=== PATIENT | female | born 1945 | race Caucasian/White ===

== ENCOUNTER → 2017-10-06 | Outpatient (CLI) | payer OTHER ==
[~2017-10-06] MED LIST: ARIP30 PO; ASPI81CH PO; Budeprion Xl300 MG PO; CALCAVITD PO; CETI5 PO; CLON1 PO; COMBIVENT RESPIM4 GM INH; Chondroitin Su250 MG PO; ENOX40I SC; ESCI10 PO; GLUC500 PO; LEVSOD50 PO; LOPE2C PO; Naproxen375 MG PO; OXYACE5T PO; QVAR7.3 G1 IH; TYLENOL PO; UREATC TOP
[2017-10-06 17:40] LABS: BASOPHILS ABSOLUTE AUTO 0.06 K/mm3 (0.00-0.23); BASOPHILS PERCENT AUTO 1 % (0-2); EOSINOPHILS ABSOLUTE AUTO 0.35 K/mm3 (0.00-0.68); EOSINOPHILS PERCENT AUTO 5 % (0-6); Hematocrit 36.7 % (33.0-51.0); Hemoglobin 12.1 g/dL (11.5-16.0); IMMATURE GRAN ABSOLUTE AUTO 0.02 K/mm3 (0.00-0.10); IMMATURE GRAN PERCENT AUTO 0 % (0-1); LYMPHOCYTES ABSOLUTE AUTO 1.19 K/mm3 (0.84-5.20); LYMPHOCYTES PERCENT AUTO 16 % (21-46); MONOCYTES ABSOLUTE AUTO 0.79 K/mm3 (0.16-1.47); MONOCYTES PERCENT AUTO 11 % (4-13); Mean Corpuscular HGB 29.4 pg (26.0-34.0); Mean Corpuscular Volume 89 fL (80-100); NEUTROPHILS ABSOLUTE AUTO 5.06 K/mm3 (1.96-9.15); NEUTROPHILS PERCENT AUTO 68 % (41-73); Platelet Count 284 K/mm3 (150-400); RDW Coefficient Variation 12.6 % (11.7-14.2); RDW Standard Deviation 41.3 fL (35.1-46.3); Red Blood Cell Count 4.11 M/mm3 (3.80-5.20); White Blood Cell Count 7.47 K/mm3 (4.00-11.30)
[2017-10-06 17:49] LABS: Alanine Aminotransfer (ALT/SGP 19 U/L (12-78); Albumin, Blood 3.6 g/dL (3.4-5.0); Albumin/Globulin Ratio 0.8 (0.8-1.8); Alk Phos 107 U/L (50-136); Anion Gap 10 mmol/L (6-16); Aspartate Aminotrans (AST/SGOT 21 U/L (12-37); Bilirubin, Total 0.5 mg/dL (0.1-1.0); Blood Urea Nitrogen 16 mg/dL (8-24); Bun/Creatinine Ratio 15.4 (12.0-20.0); CHOL/HDL RATIO 2.3; CO2, Blood 25 mmol/L (21-32); Calcium, Blood 9.3 mg/dL (8.5-10.1); Chloride, Blood 107 mmol/L (98-108); Cholesterol 139 mg/dL (50-200); Creatinine, Blood 1.04 mg/dL (0.40-1.00); Free Thyroxine 1.27 ng/dL (0.70-1.60); Globulin, Blood 4.5 g/dL (2.2-4.0); Glomerular Filtration Rate 56 (60-); Glucose, Blood 95 mg/dL (70-99); HDL Cholesterol 60 mg/dL (>39); LDL/HDL RATIO 1.1; Low Density Lipoprotein Chol 66 mg/dL (0-110); Potassium, Blood 4.1 mmol/L (3.5-5.5); Sodium, Blood 142 mmol/L (136-145); Total Protein, Blood 8.1 g/dL (6.4-8.2); Triglycerides 66 mg/dL (30-160); Very Low Density Lipoprot Chol 13 mg/dL (6-32)
== END ==
LOC: LAB SHORT 14:09
PROVIDERS: Hospitalist
DX: E03.9 Hypothyroidism, unspecified (principal); F25.9 Schizoaffective disorder, unspecified; J44.9 Chronic obstructive pulmonary disease, unspecified
CPT/HCPCS: 80053; 80061; 84439; 84443; 85025

== ENCOUNTER 2017-10-16 10:40 | Inpatient (IN) | payer OTHER ==
[~2017-10-16] VITALS: Ht 167.6 cm; Wt 118.0 kg
[2017-10-16 12:00] LABS: PCO2 Arterial 36.1 mmHg (35-45); pH Blood Arterial 7.45 (7.35-7.45)
[2017-10-16 12:01] LABS: PO2 Arterial 44.2 mmHg (80-100)
[2017-10-16 12:09] LABS: BASOPHILS ABSOLUTE AUTO 0.04 K/mm3 (0.00-0.23); BASOPHILS PERCENT AUTO 1 % (0-2); EOSINOPHILS ABSOLUTE AUTO 0.48 K/mm3 (0.00-0.68); EOSINOPHILS PERCENT AUTO 6 % (0-6); Hematocrit 34.4 % (33.0-51.0); Hemoglobin 11.4 g/dL (11.5-16.0); IMMATURE GRAN ABSOLUTE AUTO 0.06 K/mm3 (0.00-0.10); IMMATURE GRAN PERCENT AUTO 1 % (0-1); LYMPHOCYTES ABSOLUTE AUTO 0.99 K/mm3 (0.84-5.20); LYMPHOCYTES PERCENT AUTO 11 % (21-46); MONOCYTES PERCENT AUTO 10 % (4-13); Mean Corpuscular HGB 28.9 pg (26.0-34.0); Mean Corpuscular HGB Conc 33.1 g/dL (31.5-36.5); Mean Corpuscular Volume 87 fL (80-100); Mean Platelet Volume 9.8 fL (9.1-12.4); NEUTROPHILS ABSOLUTE AUTO 6.25 K/mm3 (1.96-9.15); NEUTROPHILS PERCENT AUTO 72 % (41-73); Platelet Count 343 K/mm3 (150-400); RDW Coefficient Variation 12.6 % (11.7-14.2); RDW Standard Deviation 40.1 fL (35.1-46.3); Red Blood Cell Count 3.95 M/mm3 (3.80-5.20); White Blood Cell Count 8.72 K/mm3 (4.00-11.30)
[2017-10-16 12:13] LABS: Albumin, Blood 3.1 g/dL (3.4-5.0); Albumin/Globulin Ratio 0.7 (0.8-1.8); Bilirubin, Total 0.5 mg/dL (0.1-1.0); Bun/Creatinine Ratio 18.3 (12.0-20.0); Calcium, Blood 9.1 mg/dL (8.5-10.1); Creatinine, Blood 0.98 mg/dL (0.40-1.00); Globulin, Blood 4.6 g/dL (2.2-4.0); Magnesium, Blood 2.1 mg/dL (1.6-2.4); Potassium, Blood 3.7 mmol/L (3.5-5.5); Total Protein, Blood 7.7 g/dL (6.4-8.2); Troponin I 0.022 ng/mL (0.000-0.040)
[2017-10-16] MEDS ORDERED: ACET500 PO (17:02)
[2017-10-18 15:38] LABS: PCO2 Arterial 38.5 mmHg (35-45); PO2 Arterial 57.6 mmHg (80-100); pH Blood Arterial 7.43 (7.35-7.45)
[2017-10-20 13:17] LABS: BASOPHILS ABSOLUTE AUTO 0.02 K/mm3 (0.00-0.23); BASOPHILS PERCENT AUTO 0 % (0-2); EOSINOPHILS PERCENT AUTO 0 % (0-6); Hematocrit 35.6 % (33.0-51.0); Hemoglobin 11.7 g/dL (11.5-16.0); IMMATURE GRAN ABSOLUTE AUTO 0.11 K/mm3 (0.00-0.10); IMMATURE GRAN PERCENT AUTO 1 % (0-1); LYMPHOCYTES ABSOLUTE AUTO 0.67 K/mm3 (0.84-5.20); LYMPHOCYTES PERCENT AUTO 4 % (21-46); MONOCYTES ABSOLUTE AUTO 0.75 K/mm3 (0.16-1.47); MONOCYTES PERCENT AUTO 5 % (4-13); Mean Corpuscular HGB 28.8 pg (26.0-34.0); Mean Corpuscular HGB Conc 32.9 g/dL (31.5-36.5); Mean Corpuscular Volume 88 fL (80-100); Mean Platelet Volume 9.6 fL (9.1-12.4); NEUTROPHILS ABSOLUTE AUTO 13.63 K/mm3 (1.96-9.15); NEUTROPHILS PERCENT AUTO 90 % (41-73); Platelet Count 376 K/mm3 (150-400); RDW Coefficient Variation 12.5 % (11.7-14.2); Red Blood Cell Count 4.06 M/mm3 (3.80-5.20); White Blood Cell Count 15.18 K/mm3 (4.00-11.30)
[2017-10-20 14:05] LABS: Bun/Creatinine Ratio 26.9 (12.0-20.0); Calcium, Blood 9.1 mg/dL (8.5-10.1); Creatinine, Blood 1.08 mg/dL (0.40-1.00); Potassium, Blood 3.9 mmol/L (3.5-5.5)
[2017-10-21 04:01] LABS: BASOPHILS ABSOLUTE AUTO 0.01 K/mm3 (0.00-0.23); BASOPHILS PERCENT AUTO 0 % (0-2); EOSINOPHILS PERCENT AUTO 0 % (0-6); Hematocrit 36.2 % (33.0-51.0); Hemoglobin 11.7 g/dL (11.5-16.0); IMMATURE GRAN ABSOLUTE AUTO 0.12 K/mm3 (0.00-0.10); IMMATURE GRAN PERCENT AUTO 1 % (0-1); LYMPHOCYTES ABSOLUTE AUTO 0.76 K/mm3 (0.84-5.20); LYMPHOCYTES PERCENT AUTO 6 % (21-46); MONOCYTES ABSOLUTE AUTO 0.47 K/mm3 (0.16-1.47); MONOCYTES PERCENT AUTO 3 % (4-13); Mean Corpuscular HGB 28.3 pg (26.0-34.0); Mean Corpuscular HGB Conc 32.3 g/dL (31.5-36.5); Mean Corpuscular Volume 88 fL (80-100); Mean Platelet Volume 9.8 fL (9.1-12.4); NEUTROPHILS ABSOLUTE AUTO 12.53 K/mm3 (1.96-9.15); NEUTROPHILS PERCENT AUTO 90 % (41-73); Platelet Count 389 K/mm3 (150-400); RDW Coefficient Variation 12.7 % (11.7-14.2); RDW Standard Deviation 40.9 fL (35.1-46.3); Red Blood Cell Count 4.13 M/mm3 (3.80-5.20); White Blood Cell Count 13.89 K/mm3 (4.00-11.30)
[2017-10-21 04:24] LABS: Anion Gap 8 mmol/L (6-16); Blood Urea Nitrogen 27 mg/dL (8-24); Bun/Creatinine Ratio 29.8 (12.0-20.0); CO2, Blood 30 mmol/L (21-32); Calcium, Blood 8.9 mg/dL (8.5-10.1); Chloride, Blood 104 mmol/L (98-108); Creatinine, Blood 0.91 mg/dL (0.40-1.00); Glomerular Filtration Rate >60 (60-); Glucose, Blood 113 mg/dL (70-99); Magnesium, Blood 2.8 mg/dL (1.6-2.4); Sodium, Blood 142 mmol/L (136-145)
[2017-10-23 10:10] LABS: COMPLEMENT C4, SERUM 29 mg/dL (14-44)
[2017-10-24 12:09] LABS: ANTI-DSDNA ANTIBODIES 1 IU/mL (0-9)
[2017-10-27] MEDS ORDERED: ALBU2.5V5 INH (11:26)
[2017-10-27] MEDS ORDERED: Lomotil Tablet1 EACH PO (11:28)
[2017-10-27] MEDS ORDERED: DAIRY DIGES9000 UNIT PO (11:29)
[2017-10-27] MEDS ORDERED: Naproxen250 MG PO (11:30)
[2017-10-27] MEDS ORDERED: PRED20 PO (11:30)
[2017-10-30 13:08] LABS: RNP ANTIBODIES <0.2 AI (0.0-0.9); SJOGREN'S ANTI-SS-A <0.2 AI (0.0-0.9); SMITH ANTIBODIES <0.2 AI (0.0-0.9)
[2017-10-31 02:12] LABS: COMPLEMENT C3, SERUM 185 mg/dL (82-167); SJOGREN'S ANTI-SS-B <0.2 AI (0.0-0.9)
== END 2017-10-27 14:23 | DRG 193 ==
LOC: ER 10:40 → MEDS 12:47 → PCU 12:47 → MEDS 15:55 → PCU 10-18 16:22 → MEDS 10-23 20:55
PROVIDERS: Emergency Medicine; Hospitalist; Internal Medicine Critical Care Medicine; Internal Medicine Pulmonary Disease
PROC: 5A09457 Assistance with Respiratory Ventilation, 24-96 Consecutive Hours, Continuous Positive Airway Pressure (ICD-10-PCS; principal; 2017-10-18)
PROC: 5A09357 Assistance with Respiratory Ventilation, Less than 24 Consecutive Hours, Continuous Positive Airway Pressure (ICD-10-PCS; 2017-10-22)
PROC: 5A09357 Assistance with Respiratory Ventilation, Less than 24 Consecutive Hours, Continuous Positive Airway Pressure (ICD-10-PCS; 2017-10-24)
DX: J18.9 Pneumonia, unspecified organism (principal); J96.21 Acute and chronic respiratory failure with hypoxia; J44.1 Chronic obstructive pulmonary disease with (acute) exacerbation; J44.0 Chronic obstructive pulmonary disease with (acute) lower respiratory infection; Z68.41 Body mass index [BMI] 40.0-44.9, adult; B37.0 Candidal stomatitis; E66.01 Morbid (severe) obesity due to excess calories; Z66 Do not resuscitate; E73.9 Lactose intolerance, unspecified; R19.7 Diarrhea, unspecified; F25.9 Schizoaffective disorder, unspecified; J84.10 Pulmonary fibrosis, unspecified; E03.9 Hypothyroidism, unspecified; F31.9 Bipolar disorder, unspecified; Z96.651 Presence of right artificial knee joint; Z99.81 Dependence on supplemental oxygen; Z87.891 Personal history of nicotine dependence; E87.79 Other fluid overload
CPT/HCPCS: 36415; 36600; 71045; 71046; 71260; 80048; 80053; 82803; 83605; 83735; 83880; 84484; 85025; 85379; 86038; 86160; 86225; 86235; 87040; 87086; 87493; 92610; 93005; 93010; 93306; 94640; 94660; 94760; 94762; 96365; 96375; 97110; 97116; 97161; 97530; 99285; G8978; G8979; G8996; G8997; G8998; J0295; J0456; J0696; J1940; J2920; J2930; J7030; J7050; Q9967

== ENCOUNTER 2017-11-13 23:57 | Inpatient (IN) | payer OTHER ==
[~2017-11-13] VITALS: Ht 167.6 cm; Wt 112.6 kg
[~2017-11-13 23:57] MED LIST changes: +ACET500 PO; +ALBU2.5V5 INH; -CALCAVITD PO; +Calcium With V1 EAC2 PO; +DAIRY DIGES9000 UNIT PO; +Lomotil Tablet1 EACH PO; +Naproxen250 MG PO; +PRED20 PO; -QVAR7.3 G1 IH; +[UNRECOGNIZED DRUG - OTHER] INH
[2017-11-14 00:58] LABS: BASOPHILS ABSOLUTE AUTO 0.03 K/mm3 (0.00-0.23); BASOPHILS PERCENT AUTO 0 % (0-2); EOSINOPHILS ABSOLUTE AUTO 0.09 K/mm3 (0.00-0.68); EOSINOPHILS PERCENT AUTO 1 % (0-6); Hematocrit 32.3 % (33.0-51.0); Hemoglobin 10.3 g/dL (11.5-16.0); IMMATURE GRAN ABSOLUTE AUTO 0.05 K/mm3 (0.00-0.10); IMMATURE GRAN PERCENT AUTO 1 % (0-1); LYMPHOCYTES ABSOLUTE AUTO 1.26 K/mm3 (0.84-5.20); LYMPHOCYTES PERCENT AUTO 14 % (21-46); MONOCYTES ABSOLUTE AUTO 1.23 K/mm3 (0.16-1.47); MONOCYTES PERCENT AUTO 14 % (4-13); Mean Corpuscular HGB 28.5 pg (26.0-34.0); Mean Corpuscular HGB Conc 31.9 g/dL (31.5-36.5); Mean Corpuscular Volume 89 fL (80-100); Mean Platelet Volume 10.3 fL (9.1-12.4); NEUTROPHILS ABSOLUTE AUTO 6.43 K/mm3 (1.96-9.15); NEUTROPHILS PERCENT AUTO 71 % (41-73); Platelet Count 210 K/mm3 (150-400); RDW Coefficient Variation 14.1 % (11.7-14.2); RDW Standard Deviation 45.9 fL (35.1-46.3); Red Blood Cell Count 3.62 M/mm3 (3.80-5.20); White Blood Cell Count 9.09 K/mm3 (4.00-11.30)
[2017-11-14 01:16] LABS: Alanine Aminotransfer (ALT/SGP 15 U/L (12-78); Albumin, Blood 2.9 g/dL (3.4-5.0); Albumin/Globulin Ratio 0.7 (0.8-1.8); Alk Phos 75 U/L (50-136); Anion Gap 6 mmol/L (6-16); Aspartate Aminotrans (AST/SGOT 26 U/L (12-37); Bilirubin, Total 0.5 mg/dL (0.1-1.0); Blood Urea Nitrogen 19 mg/dL (8-24); Bun/Creatinine Ratio 14.5 (12.0-20.0); CO2, Blood 27 mmol/L (21-32); Calcium, Blood 9.1 mg/dL (8.5-10.1); Chloride, Blood 108 mmol/L (98-108); Creatinine, Blood 1.31 mg/dL (0.40-1.00); Globulin, Blood 4.4 g/dL (2.2-4.0); Glomerular Filtration Rate 43 (60-); Glucose, Blood 105 mg/dL (70-99); Potassium, Blood 4.3 mmol/L (3.5-5.5); Sodium, Blood 141 mmol/L (136-145); Total Protein, Blood 7.3 g/dL (6.4-8.2); Troponin I <0.015 ng/mL (0.000-0.040)
[2017-11-14] MEDS ORDERED: ESCI10 PO (03:58)
[2017-11-14 23:10] LABS: Source, Urine Clean Catch
[2017-11-14 23:14] LABS: Bilirubin, Urine Neg (Neg); Blood, Urine Neg (Neg); Glucose Qualitative, Urine Neg (Neg); Ketones, Urine Neg (Neg); Leukocyte Esterase, Urine 1+ (Neg); Nitrite, Urine Neg (Neg); Protein, Urine Neg (Neg); Specific Gravity, Urine 1.005 (1.003-1.022); Urobilinogen, Urine NORM (Normal)
[2017-11-14 23:30] LABS: Appearance, Urine Clear (Clear); Bacteria Rare /hpf; Color, Urine Pale Yellow (P-Yellow); Red Blood Cells, Urine Not Seen /hpf (0-2); Squamous Epithelial Cells Few /hpf (Few); White Blood Cells, Urine 0-2 /hpf (0-5)
[2017-11-15 05:00] LABS: BASOPHILS PERCENT AUTO 0 % (0-2); EOSINOPHILS PERCENT AUTO 0 % (0-6); Hemoglobin 9.8 g/dL (11.5-16.0); IMMATURE GRAN ABSOLUTE AUTO 0.05 K/mm3 (0.00-0.10); IMMATURE GRAN PERCENT AUTO 1 % (0-1); LYMPHOCYTES ABSOLUTE AUTO 0.42 K/mm3 (0.84-5.20); LYMPHOCYTES PERCENT AUTO 8 % (21-46); MONOCYTES PERCENT AUTO 4 % (4-13); Mean Corpuscular HGB 27.8 pg (26.0-34.0); Mean Corpuscular HGB Conc 31.6 g/dL (31.5-36.5); Mean Corpuscular Volume 88 fL (80-100); Mean Platelet Volume 10.3 fL (9.1-12.4); NEUTROPHILS ABSOLUTE AUTO 4.86 K/mm3 (1.96-9.15); NEUTROPHILS PERCENT AUTO 88 % (41-73); Platelet Count 223 K/mm3 (150-400); RDW Standard Deviation 44.9 fL (35.1-46.3); Red Blood Cell Count 3.52 M/mm3 (3.80-5.20); White Blood Cell Count 5.53 K/mm3 (4.00-11.30)
[2017-11-15 05:22] LABS: Anion Gap 7 mmol/L (6-16); Blood Urea Nitrogen 19 mg/dL (8-24); Bun/Creatinine Ratio 20.1 (12.0-20.0); CO2, Blood 26 mmol/L (21-32); Calcium, Blood 8.9 mg/dL (8.5-10.1); Chloride, Blood 109 mmol/L (98-108); Creatinine, Blood 0.94 mg/dL (0.40-1.00); Glomerular Filtration Rate >60 (60-); Glucose, Blood 155 mg/dL (70-99); Potassium, Blood 3.9 mmol/L (3.5-5.5); Sodium, Blood 142 mmol/L (136-145)
[2017-11-17] MEDS ORDERED: QVAR REDIHALE10.6 G1 INH (10:20)
[2017-11-17] MEDS ORDERED: Tessalon200 MG PO (10:22)
[2017-11-17] MEDS ORDERED: LEVFLO500 PO (10:26)
[2017-11-17] MEDS ORDERED: LOSA25 PO (10:27)
[2017-11-17] MEDS ORDERED: (None)20 M1 PO (10:29)
== END 2017-11-17 17:02 | disposition home health service (06) | DRG 871 ==
LOC: ER 23:57 → MEDS 11-14 03:54 → ENPENDDIS 11-17 08:47 → MEDS 11-17 17:02
PROVIDERS: Emergency Medicine; Hospitalist
DX: A41.9 Sepsis, unspecified organism (principal); J96.21 Acute and chronic respiratory failure with hypoxia; J18.9 Pneumonia, unspecified organism; J44.0 Chronic obstructive pulmonary disease with (acute) lower respiratory infection; N17.9 Acute kidney failure, unspecified; I95.89 Other hypotension; Z68.41 Body mass index [BMI] 40.0-44.9, adult; J84.10 Pulmonary fibrosis, unspecified; Z99.81 Dependence on supplemental oxygen; I10 Essential (primary) hypertension; E66.9 Obesity, unspecified; E03.9 Hypothyroidism, unspecified; F25.9 Schizoaffective disorder, unspecified; Z87.891 Personal history of nicotine dependence; Z96.651 Presence of right artificial knee joint; Z79.899 Other long term (current) drug therapy
CPT/HCPCS: 36415; 71046; 80048; 80053; 81001; 83605; 83880; 84484; 85025; 93005; 93010; 94640; 94760; 94761; 96361; 96365; 96366; 97116; 97162; 97530; 99285-25; G8978; G8979; J1956; J2930; J7030

== ENCOUNTER → 2018-08-31 | Outpatient (CLI) | payer OTHER ==
[~2018-08-31] MED LIST changes: +(None)20 M1 PO; +LEVFLO500 PO; +LOSA25 PO; +QVAR REDIHALE10.6 G1 INH; +Tessalon200 MG PO
[2018-08-31 17:41] LABS: BASOPHILS ABSOLUTE AUTO 0.06 K/mm3 (0.00-0.23); BASOPHILS PERCENT AUTO 1 % (0-2); EOSINOPHILS ABSOLUTE AUTO 0.39 K/mm3 (0.00-0.68); EOSINOPHILS PERCENT AUTO 6 % (0-6); Hematocrit 39.6 % (33.0-51.0); Hemoglobin 12.5 g/dL (11.5-16.0); IMMATURE GRAN ABSOLUTE AUTO 0.02 K/mm3 (0.00-0.10); IMMATURE GRAN PERCENT AUTO 0 % (0-1); LYMPHOCYTES ABSOLUTE AUTO 1.62 K/mm3 (0.84-5.20); LYMPHOCYTES PERCENT AUTO 24 % (21-46); MONOCYTES ABSOLUTE AUTO 0.56 K/mm3 (0.16-1.47); MONOCYTES PERCENT AUTO 8 % (4-13); Mean Corpuscular HGB 29.1 pg (26.0-34.0); Mean Corpuscular HGB Conc 31.6 g/dL (31.5-36.5); Mean Corpuscular Volume 92 fL (80-100); Mean Platelet Volume 10.5 fL (9.1-12.4); NEUTROPHILS ABSOLUTE AUTO 4.05 K/mm3 (1.96-9.15); NEUTROPHILS PERCENT AUTO 60 % (41-73); Platelet Count 225 K/mm3 (150-400); RDW Coefficient Variation 12.8 % (11.7-14.2); RDW Standard Deviation 43.2 fL (35.1-46.3)
[2018-08-31 18:09] LABS: Bilirubin, Total 0.2 mg/dL (0.1-1.0); Bun/Creatinine Ratio 17.1 (12.0-20.0); Calcium, Blood 9.9 mg/dL (8.5-10.1); Creatinine, Blood 1.17 mg/dL (0.40-1.00); Free Thyroxine 1.02 ng/dL (0.70-1.60); Potassium, Blood 4.3 mmol/L (3.5-5.5); Thyroid Stimulating Hormone 1.91 uIU/mL (0.360-4.800)
== END | disposition home or self-care (01) ==
LOC: LAB 17:20 → LAB SHORT 17:20
PROVIDERS: Hospitalist
DX: E03.9 Hypothyroidism, unspecified (principal); I10 Essential (primary) hypertension; R73.9 Hyperglycemia, unspecified
CPT/HCPCS: 80053; 83036; 84439; 84443; 85025

== ENCOUNTER → 2019-09-13 | Outpatient (CLI) | payer OTHER ==
[2019-09-13 20:30] LABS: Bun/Creatinine Ratio 21.4 (12.0-20.0); Calcium, Blood 9.6 mg/dL (8.5-10.1); Creatinine, Blood 1.12 mg/dL (0.40-1.00)
== END | disposition home or self-care (01) ==
LOC: LAB SHORT 18:57 → LAB 18:57
PROVIDERS: Hospitalist
DX: R60.9 Edema, unspecified (principal)
CPT/HCPCS: 80048

== ENCOUNTER 2020-05-23 14:38 | Emergency (ER) | payer OTHER ==
[~2020-05-23] VITALS: Ht 167.6 cm; Wt 131.1 kg
[~2020-05-23 14:38] MED LIST changes: -ASPI81CH PO; +Aspirin EC81 MG PO
[2020-05-23] MEDS ORDERED: ESBRIET267 MG PO (15:20)
[2020-05-23] MEDS ORDERED: COMBIVENT RESPIM4 G1 (15:21)
[2020-05-23] MEDS ORDERED: SYMBICORT 16010.2 GM INH (15:21)
[2020-05-23] MEDS ORDERED: GABA100 PO (15:23)
[2020-05-23] MEDS ORDERED: OXYB5 PO (15:23)
[2020-05-23 16:24] LABS: BASOPHILS ABSOLUTE AUTO 0.05 K/mm3 (0.00-0.23); BASOPHILS PERCENT AUTO 1 % (0-2); EOSINOPHILS PERCENT AUTO 4 % (0-6); Hematocrit 37.1 % (33.0-51.0); Hemoglobin 11.8 g/dL (11.5-16.0); IMMATURE GRAN ABSOLUTE AUTO 0.04 K/mm3 (0.00-0.10); IMMATURE GRAN PERCENT AUTO 1 % (0-1); LYMPHOCYTES ABSOLUTE AUTO 1.15 K/mm3 (0.84-5.20); LYMPHOCYTES PERCENT AUTO 14 % (21-46); MONOCYTES ABSOLUTE AUTO 0.83 K/mm3 (0.16-1.47); MONOCYTES PERCENT AUTO 10 % (4-13); Mean Corpuscular HGB 28.7 pg (26.0-34.0); Mean Corpuscular HGB Conc 31.8 g/dL (31.5-36.5); Mean Corpuscular Volume 90 fL (80-100); Mean Platelet Volume 10.3 fL (9.1-12.4); NEUTROPHILS ABSOLUTE AUTO 5.62 K/mm3 (1.96-9.15); NEUTROPHILS PERCENT AUTO 70 % (41-73); Platelet Count 224 K/mm3 (150-400); RDW Coefficient Variation 13.7 % (11.7-14.2); RDW Standard Deviation 45.4 fL (35.1-46.3); Red Blood Cell Count 4.11 M/mm3 (3.80-5.20); White Blood Cell Count 7.99 K/mm3 (4.00-11.30)
[2020-05-23 16:33] LABS: Albumin, Blood 3.4 g/dL (3.4-5.0); Albumin/Globulin Ratio 0.7 (0.8-1.8); Bilirubin, Total 0.3 mg/dL (0.1-1.0); Calcium, Blood 9.6 mg/dL (8.5-10.1); Creatinine, Blood 1.1 mg/dL (0.40-1.00); Globulin, Blood 4.6 g/dL (2.2-4.0); Magnesium, Blood 2.3 mg/dL (1.6-2.4); Potassium, Blood 3.6 mmol/L (3.5-5.5)
[2020-05-23] MEDS ORDERED: Prednisone20 MG PO (17:33)
== END 2020-05-23 19:09 | disposition home or self-care (01) ==
LOC: ER 14:38
PROVIDERS: Physician Assistant
DX: R06.00 Dyspnea, unspecified (principal); J44.9 Chronic obstructive pulmonary disease, unspecified; E03.9 Hypothyroidism, unspecified; Z79.899 Other long term (current) drug therapy; Z79.51 Long term (current) use of inhaled steroids; Z79.82 Long term (current) use of aspirin
CPT/HCPCS: 80053; 83735; 83880; 85025; 93005; 93010; 99285-25; J7512

== ENCOUNTER 2020-06-11 13:12 | Observation (INO) | payer OTHER ==
[~2020-06-11] VITALS: Ht 167.6 cm; Wt 128.8 kg
[~2020-06-11 13:12] MED LIST changes: +COMBIVENT RESPIM4 G1; +ESBRIET267 MG PO; +GABA100 PO; +OXYB5 PO; +Prednisone20 MG PO; +SYMBICORT 16010.2 GM INH
[2020-06-11] MEDS ORDERED: Amitriptyline H25 MG PO (13:28)
[2020-06-11] MEDS ORDERED: FAMO20 PO (13:29)
[2020-06-11 15:06] LABS: Source, Urine Voided
[2020-06-11 15:13] LABS: Appearance, Urine Clear (Clear); Bilirubin, Urine Neg (Neg); Blood, Urine 1+ (Neg); Color, Urine Yellow (P-Yellow); Glucose Qualitative, Urine Neg (Neg); Ketones, Urine Neg (Neg); Leukocyte Esterase, Urine 1+ (Neg); Nitrite, Urine Pos (Neg); Protein, Urine Neg (Neg); Specific Gravity, Urine 1.015 (1.003-1.022); Urobilinogen, Urine NORM (Normal)
[2020-06-11 15:19] LABS: Bacteria Few /hpf; Red Blood Cells, Urine 0-2 /hpf (0-2); Squamous Epithelial Cells Few /hpf (Few)
[2020-06-11 15:25] LABS: BASOPHILS ABSOLUTE AUTO 0.05 K/mm3 (0.00-0.23); BASOPHILS PERCENT AUTO 1 % (0-2); EOSINOPHILS ABSOLUTE AUTO 0.59 K/mm3 (0.00-0.68); EOSINOPHILS PERCENT AUTO 8 % (0-6); Hematocrit 36.1 % (33.0-51.0); Hemoglobin 11.5 g/dL (11.5-16.0); IMMATURE GRAN ABSOLUTE AUTO 0.02 K/mm3 (0.00-0.10); IMMATURE GRAN PERCENT AUTO 0 % (0-1); LYMPHOCYTES PERCENT AUTO 17 % (21-46); MONOCYTES ABSOLUTE AUTO 0.76 K/mm3 (0.16-1.47); MONOCYTES PERCENT AUTO 11 % (4-13); Mean Corpuscular HGB 28.6 pg (26.0-34.0); Mean Corpuscular HGB Conc 31.9 g/dL (31.5-36.5); Mean Corpuscular Volume 90 fL (80-100); Mean Platelet Volume 9.6 fL (9.1-12.4); NEUTROPHILS ABSOLUTE AUTO 4.55 K/mm3 (1.96-9.15); NEUTROPHILS PERCENT AUTO 64 % (41-73); Platelet Count 260 K/mm3 (150-400); RDW Coefficient Variation 13.5 % (11.7-14.2); RDW Standard Deviation 44.4 fL (35.1-46.3); Red Blood Cell Count 4.02 M/mm3 (3.80-5.20); White Blood Cell Count 7.17 K/mm3 (4.00-11.30)
[2020-06-11 15:51] LABS: Alanine Aminotransfer (ALT/SGP 24 U/L (12-78); Albumin/Globulin Ratio 0.6 (0.8-1.8); Alk Phos 99 U/L (50-136); Anion Gap 6 mmol/L (6-16); Aspartate Aminotrans (AST/SGOT 21 U/L (12-37); Bilirubin, Total 0.3 mg/dL (0.1-1.0); Blood Urea Nitrogen 22 mg/dL (8-24); Bun/Creatinine Ratio 21.6 (12.0-20.0); CO2, Blood 29 mmol/L (21-32); Calcium, Blood 9.4 mg/dL (8.5-10.1); Chloride, Blood 105 mmol/L (98-108); Creatinine, Blood 1.02 mg/dL (0.40-1.00); Glomerular Filtration Rate 56 (60-); Glucose, Blood 99 mg/dL (70-99); Potassium, Blood 3.9 mmol/L (3.5-5.5); Sodium, Blood 140 mmol/L (136-145); Troponin I <0.015 ng/mL (0.000-0.040)
[2020-06-11 16:10] LABS: Influenza A, PCR NEGATIVE (NEGATIVE); Influenza B, PCR NEGATIVE (NEGATIVE); Resp Syncytial Virus, PCR NEGATIVE (NEGATIVE); SARS-Cov-2 (COVID-19) PCR, MMC NEGATIVE (NEGATIVE)
[2020-06-11] MEDS ORDERED: SYNTHROID50 MC2 PO (16:33)
[2020-06-11] MEDS ORDERED: ARIP20 PO (16:34)
[2020-06-11] MEDS ORDERED: BUPROPION XL150 M1 PO (16:35)
[2020-06-11] MEDS ORDERED: GABA100 PO (16:37)
[2020-06-11] MEDS ORDERED: ESCI10 PO (16:37)
[2020-06-11] MEDS ORDERED: IPRAT-ALBUT 0.5-3 ML INH (16:37)
[2020-06-11] MEDS ORDERED: OXYB5ER PO (16:38)
[2020-06-11] MEDS ORDERED: KLOR-CON 1010 ME1 PO (16:39)
[2020-06-11] MEDS ORDERED: BENZONATATE100 MG PO (16:39)
[2020-06-11] MEDS ORDERED: FUROSEMIDE40 MG PO (16:39)
[2020-06-11] MEDS ORDERED: LOSARTAN POTASS25 M2 PO (16:39)
[2020-06-12 05:00] LABS: BASOPHILS ABSOLUTE AUTO 0.02 K/mm3 (0.00-0.23); BASOPHILS PERCENT AUTO 0 % (0-2); EOSINOPHILS ABSOLUTE AUTO 0.01 K/mm3 (0.00-0.68); EOSINOPHILS PERCENT AUTO 0 % (0-6); Hematocrit 35.4 % (33.0-51.0); Hemoglobin 11.1 g/dL (11.5-16.0); IMMATURE GRAN ABSOLUTE AUTO 0.03 K/mm3 (0.00-0.10); IMMATURE GRAN PERCENT AUTO 1 % (0-1); LYMPHOCYTES ABSOLUTE AUTO 0.57 K/mm3 (0.84-5.20); LYMPHOCYTES PERCENT AUTO 12 % (21-46); MONOCYTES ABSOLUTE AUTO 0.09 K/mm3 (0.16-1.47); MONOCYTES PERCENT AUTO 2 % (4-13); Mean Corpuscular HGB 28.4 pg (26.0-34.0); Mean Corpuscular HGB Conc 31.4 g/dL (31.5-36.5); Mean Corpuscular Volume 91 fL (80-100); Mean Platelet Volume 9.8 fL (9.1-12.4); NEUTROPHILS PERCENT AUTO 85 % (41-73); Platelet Count 248 K/mm3 (150-400); RDW Coefficient Variation 13.4 % (11.7-14.2); RDW Standard Deviation 44.2 fL (35.1-46.3); Red Blood Cell Count 3.91 M/mm3 (3.80-5.20); White Blood Cell Count 4.82 K/mm3 (4.00-11.30)
[2020-06-12 05:18] LABS: Anion Gap 5 mmol/L (6-16); Blood Urea Nitrogen 23 mg/dL (8-24); Bun/Creatinine Ratio 24.5 (12.0-20.0); CO2, Blood 28 mmol/L (21-32); Calcium, Blood 9.6 mg/dL (8.5-10.1); Chloride, Blood 108 mmol/L (98-108); Creatinine, Blood 0.94 mg/dL (0.40-1.00); Glomerular Filtration Rate >60 (60-); Glucose, Blood 141 mg/dL (70-99); Potassium, Blood 4.5 mmol/L (3.5-5.5); Sodium, Blood 141 mmol/L (136-145)
--- NOTE | 2020-06-12 07:38 | NUR ---
06/12/20 0600 PT ON 4LPM OF O2 VIA N/C AND HAS TO BE INCREASED TO 8LPM PER DAUGHTER'S INSTRUCTION AT HOME WHEN SHE GETS UP. MODERATE SOB NOTED WITH ANY EXERTION. OCC. COUGHING EPISODES AND RN PHONED ON-CALL MD FOR COUGH SUPPRESSANT. COUGH SUPPRESSANT GIVEN ONCE THIS SHIFT WITH RELIEF. PT SLEPT FAIR DUE TO FREQUENT NEED TO VOID AND REQUESTS FOR ORAL FLUIDS. VITALS STABLE. GABAPENTIN DC'D PT IS ALLERGIC TO IT. MILD LEFT SHOULDER DISCOMFORT BUT PT DECLINED ANY PAIN MEDS. STATES DISCOMFORT IS AT TOLERABLE LEVEL THIS SHIFT. PT OCC. INCONTINENT AND BRIEFS CHANGED PRN.
[2020-06-12] MEDS ORDERED: SENN187 PO (17:03)
[2020-06-12] MEDS ORDERED: TUSSIN MUC100 MG/5 M PO (17:03)
--- NOTE | 2020-06-12 18:39 | NUR ---
DISCHARGE INSTRUCTIONS COMPLETED AND DISCUSSED WITH PTS DAUGHTER EXPRESSING UNDERSTANDING. SCRIPTS FAXED TO [facility]. PT HAS GOTTEN UP TO THE BSC SEVERAL TIMES TODAY AND O2 HAS BEEN INCREASED TO 8L/M FOR ACTIVITY AND THEN BROUGHT BACK DOWN. RECOVERS LONG O2 HAS BEEN INCREASED FOR ACTIVITY. DISCHARGED ON O2 AT 3L/M WITH SATS IN LOW 90'S. 1 PERSON ASSIST INTO THE CAR.
== END 2020-06-12 18:18 | disposition home health service (06) ==
LOC: ER 13:12 → MEDS 13:13
PROVIDERS: Emergency Medicine; Student in an Organized Health Care Education/Training Program; ADMIT Internal Medicine
DX: J84.112 Idiopathic pulmonary fibrosis (principal); J80 Acute respiratory distress syndrome; F32.9 Major depressive disorder, single episode, unspecified; E03.9 Hypothyroidism, unspecified; F25.9 Schizoaffective disorder, unspecified; Z96.651 Presence of right artificial knee joint; Z87.891 Personal history of nicotine dependence; Z79.82 Long term (current) use of aspirin; Z66 Do not resuscitate; Z20.822 Contact with and (suspected) exposure to COVID-19
CPT/HCPCS: 0241U; 36415; 70450; 71045; 71260; 72125; 72170; 80048; 80053; 81001; 83690; 83880; 84145; 84484; 85025; 85379; 87077; 87086; 87186; 92610; 93005; 93010; 94640; 94760; 96361; 96365; 96372-59; 96375; 96376; 97110; 97116; 97161; 97165; 97530; 99285-25; A9270; G0378; J0696; J1650; J2930; J7030; Q9967

== ENCOUNTER 2020-10-19 02:00 | Inpatient (IN) | payer OTHER ==
[~2020-10-19] VITALS: Ht 167.6 cm; Wt 119.9 kg
[~2020-10-19 02:00] MED LIST changes: +ARIP20 PO; +Amitriptyline H25 MG PO; +BENZONATATE100 MG PO; +BUPROPION XL150 M1 PO; +FAMO20 PO; +FUROSEMIDE40 MG PO; +IPRAT-ALBUT 0.5-3 ML INH; +KLOR-CON 1010 ME1 PO; +LOSARTAN POTASS25 M2 PO; +OXYB5ER PO; +SENN187 PO; +SYNTHROID50 MC2 PO; +TUSSIN MUC100 MG/5 M PO
[2020-10-19 02:24] LABS: BASOPHILS ABSOLUTE AUTO 0.01 K/mm3 (0.00-0.23); BASOPHILS PERCENT AUTO 0 % (0-2); EOSINOPHILS ABSOLUTE AUTO 0.16 K/mm3 (0.00-0.68); EOSINOPHILS PERCENT AUTO 4 % (0-6); Hematocrit 35.6 % (33.0-51.0); Hemoglobin 11.5 g/dL (11.5-16.0); IMMATURE GRAN ABSOLUTE AUTO 0.01 K/mm3 (0.00-0.10); IMMATURE GRAN PERCENT AUTO 0 % (0-1); LYMPHOCYTES ABSOLUTE AUTO 0.72 K/mm3 (0.84-5.20); LYMPHOCYTES PERCENT AUTO 18 % (21-46); MONOCYTES ABSOLUTE AUTO 0.53 K/mm3 (0.16-1.47); MONOCYTES PERCENT AUTO 13 % (4-13); Mean Corpuscular HGB 28.3 pg (26.0-34.0); Mean Corpuscular HGB Conc 32.3 g/dL (31.5-36.5); Mean Corpuscular Volume 88 fL (80-100); Mean Platelet Volume 9.8 fL (9.1-12.4); NEUTROPHILS ABSOLUTE AUTO 2.56 K/mm3 (1.96-9.15); NEUTROPHILS PERCENT AUTO 64 % (41-73); Platelet Count 145 K/mm3 (150-400); RDW Coefficient Variation 14.6 % (11.7-14.2); RDW Standard Deviation 47.2 fL (35.1-46.3); Red Blood Cell Count 4.07 M/mm3 (3.80-5.20); White Blood Cell Count 3.99 K/mm3 (4.00-11.30)
[2020-10-19 02:44] LABS: Troponin I <0.015 ng/mL (0.000-0.040)
[2020-10-19 02:45] LABS: Alanine Aminotransfer (ALT/SGP 21 U/L (12-78); Albumin, Blood 3.4 g/dL (3.4-5.0); Albumin/Globulin Ratio 0.7 (0.8-1.8); Alk Phos 92 U/L (50-136); Anion Gap 6 mmol/L (6-16); Aspartate Aminotrans (AST/SGOT 38 U/L (12-37); Bilirubin, Total 0.2 mg/dL (0.1-1.0); Blood Urea Nitrogen 20 mg/dL (8-24); Bun/Creatinine Ratio 17.7 (12.0-20.0); CO2, Blood 28 mmol/L (21-32); Calcium, Blood 8.7 mg/dL (8.5-10.1); Chloride, Blood 103 mmol/L (98-108); Creatinine, Blood 1.13 mg/dL (0.40-1.00); Globulin, Blood 4.8 g/dL (2.2-4.0); Glomerular Filtration Rate 50 (60-); Glucose, Blood 91 mg/dL (70-99); Potassium, Blood 3.8 mmol/L (3.5-5.5); Sodium, Blood 137 mmol/L (136-145); Total Protein, Blood 8.2 g/dL (6.4-8.2)
--- NOTE | 2020-10-19 04:00 | NUR ---
PT ARRIVED TO ICU 6 FROM ED VIA GURNEY. PT TRANSFERED TO ICU BED WITHOUT ANY ISSUES. CPAP 8 65% SPO2. HR 84 SR ON MONITOR, SBP 115'S, SPO2 96%. PIV SALINE LOCKED. PT INCONTINENT, ATTENDS IN PLACE. PT LEANS TO LEFT SIDE, PT STATES SHE IS MOST COMFORTABLE THIS WAY. GARBLED SPEECH DUE TO TOP DENTURES BEING REMOVED, ALERT AND ORIENTED. ABLE TO MOVE ALL EXTREMITIES, WEAKNESS X 4. EDEMA TO BLE, NORMAL PER PT. DAUGHTER MANAGES MEDICATIONS AT HOME, UNABLE TO COMPLETE MED ASSESSMENT.
[2020-10-19 04:32] LABS: BASOPHILS ABSOLUTE AUTO 0.01 K/mm3 (0.00-0.23); BASOPHILS PERCENT AUTO 0 % (0-2); EOSINOPHILS ABSOLUTE AUTO 0.11 K/mm3 (0.00-0.68); EOSINOPHILS PERCENT AUTO 3 % (0-6); Hematocrit 34.4 % (33.0-51.0); IMMATURE GRAN ABSOLUTE AUTO 0.01 K/mm3 (0.00-0.10); IMMATURE GRAN PERCENT AUTO 0 % (0-1); LYMPHOCYTES ABSOLUTE AUTO 0.73 K/mm3 (0.84-5.20); LYMPHOCYTES PERCENT AUTO 21 % (21-46); MONOCYTES ABSOLUTE AUTO 0.44 K/mm3 (0.16-1.47); MONOCYTES PERCENT AUTO 13 % (4-13); Mean Corpuscular HGB 28.1 pg (26.0-34.0); Mean Corpuscular Volume 88 fL (80-100); Mean Platelet Volume 9.9 fL (9.1-12.4); NEUTROPHILS ABSOLUTE AUTO 2.21 K/mm3 (1.96-9.15); NEUTROPHILS PERCENT AUTO 63 % (41-73); Platelet Count 140 K/mm3 (150-400); RDW Coefficient Variation 14.6 % (11.7-14.2); RDW Standard Deviation 47.1 fL (35.1-46.3); Red Blood Cell Count 3.92 M/mm3 (3.80-5.20); White Blood Cell Count 3.51 K/mm3 (4.00-11.30)
--- NOTE | 2020-10-19 10:08 | NUR ---
ASSUMED CARE OF PT, REPORT RCV'D FROM DUSTIN DUMONT. PT LAYING SUPINE IN BED WITH BIPAP 8/65%, PT TACHYPNEIC WITH RR IN THE MID 50'S. SATS>90%. PT ALERT AND ORIENTED, ABLE TO FOLLOW COMMANDS WEAKLY. PT HAS DIFFICULTY ROLLING AND REPOSITIONING, RR INCREASES AND PT BEGINS COUGHING. PT HAS PERSISTENT COUGH THAT PER PT'S DAUGHTER IS BASELINE. PT WEARS 4-8 LITERS BASELINE AT HOME. SPOKE WITH PT'S DAUGHTER THIS AM. PT SEE'S PULMONOLOGY OUTPATIENT AND DISCUSSED WITH CT SCAN TECHNICIAN MAKING PT COMFORT CARE. DAUGHTER AND SON TO COME IN THIS AFTERNOON TO DISCUSS COMFORT CARE. SEE FULL SHIFT ASSESSMENT.
[2020-10-19 11:29] LABS: Source, Urine Catheter
[2020-10-19 11:33] LABS: Bilirubin, Urine Neg (Neg); Blood, Urine 3+ (Neg); Glucose Qualitative, Urine Neg (Neg); Ketones, Urine 3+ (Neg); Leukocyte Esterase, Urine Neg (Neg); Nitrite, Urine Neg (Neg); Protein, Urine 2+ (Neg); Urobilinogen, Urine NORM (Normal)
--- NOTE | 2020-10-19 11:48 | NUR ---
PT'S DAUGHTER, SON AND GRANDDAUGHTER AT BEDSIDE DISCUSSING CARE OPTIONS WITH PALLIATIVE CARE. FAMILY DECIDES UNITELY TO MAKE PT COMFORT CARE, FAMILY REQUESTING THAT PT REMAIN ON BIPAP AT THIS TIME FOR PT COMFORT.
--- NOTE | 2020-10-19 11:56 | NUR ---
pt alert but very uncomfortable with labored respirations. dr guaman and dr acosta spoke with family and we cad them come in erly due to pateitns symptoms. pt placed on comfort care.
[2020-10-19 12:05] LABS: Appearance, Urine Clear (Clear); Color, Urine Yellow (P-Yellow)
[2020-10-19 12:11] LABS: Bacteria Few /hpf; Mucus Light (0-Heavy); Squamous Epithelial Cells Few /hpf (Few)
--- NOTE | 2020-10-19 12:30 | NUR ---
PT REMOVED FROM BIPAP AND PLACE ON AIRVO 60L, 93% FOR PT COMFORT. PT MEDICATED PER COMFORT CARE ORDERS. PT'S RR DECREASED TO LOW 40'S WITH MEDICATION, PATIENT APPEARS MORE COMFORTABLE. PT REPORTS THAT SHE IS "ANXIOUS TO GO HOME". SPOKE WITH PT'S FAMILY WHO RECOGNIZE PT'S WISHES BUT STATE THAT "IF SHE IS THIS WEAK AND UNABLE TO WALK UP THE STAIRS AT HOME SHE CAN'T COME HOME". HOSPICE REFERRAL PLACE. PALLIATIVE AND SPIRITUAL CARE VISITED FAMILY.
--- NOTE | 2020-10-19 17:51 | NUR ---
PT'S DAUGHTER AND SON REMAIN AT BEDSIDE. PT'S FAMILY REQUESTS TO TURN AIRVO AND MONITOR OFF SOON GRANDDAUGHTER ARRIVES TO HOSPITAL. PT'S STATES PATIENT WISHES TO BE CREMATED UPON . DISCUSSED PROCESS FOLLOWING PT'S . FAMILY WISHES TO USE [facility] IN [place].
--- NOTE | 2020-10-19 18:56 | NUR ---
Spiritual care note: Family solemn at bedside. Prayer provided and rosary placed in pt's hand. Government Affairs Researcher services will remain available.
--- NOTE | 2020-10-19 21:09 | NUR ---
PT'S DAUGHTER AND GRANDDAUGHTER AT BEDSIDE. PT MEDICATED WITH MORPHINE PER COMFORT CARE ORDERS FOR AIR HUNGER. PT INTO [facility] AT 2018, NO PULSE FOUND. FAMILY CONTINUES TO STAY AT BEDSIDE, WOUD LIKE PT TO GO TO [facility] FOR CREM[facility].
== END 2020-10-19 20:18 | DRG 177 ==
LOC: ER 02:00 → ICUW 03:05 → ICUE 03:05
PROVIDERS: Emergency Medicine; Internal Medicine; ADMIT Internal Medicine
PROC: 8E0ZXY6 Isolation (ICD-10-PCS; principal; 2020-10-19)
PROC: 5A09357 Assistance with Respiratory Ventilation, Less than 24 Consecutive Hours, Continuous Positive Airway Pressure (ICD-10-PCS; 2020-10-19)
PROC: XW033E5 Introduction of Remdesivir Anti-infective into Peripheral Vein, Percutaneous Approach, New Technology Group 5 (ICD-10-PCS; 2020-10-19)
PROC: 3E0333Z Introduction of Anti-inflammatory into Peripheral Vein, Percutaneous Approach (ICD-10-PCS; 2020-10-19)
DX: U07.1 COVID-19 (principal); J12.82 Pneumonia due to coronavirus disease 2019; J96.21 Acute and chronic respiratory failure with hypoxia; J44.0 Chronic obstructive pulmonary disease with (acute) lower respiratory infection; A08.39 Other viral enteritis; Z66 Do not resuscitate; Z51.5 Encounter for palliative care; Z96.651 Presence of right artificial knee joint; E03.9 Hypothyroidism, unspecified; J84.112 Idiopathic pulmonary fibrosis; F25.9 Schizoaffective disorder, unspecified; F32.9 Major depressive disorder, single episode, unspecified; Z87.891 Personal history of nicotine dependence; Z88.8 Allergy status to other drugs, medicaments and biological substances; Z79.82 Long term (current) use of aspirin; Z79.899 Other long term (current) drug therapy; Z79.51 Long term (current) use of inhaled steroids; Z99.81 Dependence on supplemental oxygen
CPT/HCPCS: 36415; 51702; 71045; 80053; 81001; 83880; 84484; 85025; 93005; 93010; 94660; 99285-25; A9270; J1100; J1650; J1940; J2060; J2270